=== PATIENT | female | born 1990 | race Caucasian/White ===

== ENCOUNTER 2024-04-25 07:13 | Outpatient (CLI) | payer BC, OTHER | END 2024-04-25 07:14 | disposition home or self-care (01) | LOC: ULT 07:13 | DX: K66.8 Other specified disorders of peritoneum (principal); R16.0 Hepatomegaly, not elsewhere classified; J90 Pleural effusion, not elsewhere classified; Z90.49 Acquired absence of other specified parts of digestive tract | CPT/HCPCS: 76705 ==